=== PATIENT | female | born 1965 | race Caucasian/White ===

== ENCOUNTER 2017-04-02 13:00 | Emergency (ER) | payer SELFPAY ==
[2017-04-02 13:38] LABS: ABSOLUTE BASOPHILS # (AUTO) 0.1 10^3/uL (0.0-0.2); ABSOLUTE EOSINOPHILS # (AUTO) 0.1 10^3/uL (0.0-0.6); ABSOLUTE LYMPHOCYTES (AUTO) 2.5 10^3/uL (0.5-4.7); ABSOLUTE MONOCYTES (AUTO) 0.5 10^3/uL (0.1-1.4); ABSOLUTE NEUT (AUTO) 5.7 10^3/uL (1.7-8.2); BASOPHILS % (AUTO) 0.8 % (0-2); EOSINOPHILS % (AUTO) 0.6 % (0-6); HEMATOCRIT 38.7 % (36.0-47.0); HEMOGLOBIN 13.4 g/dL (12.0-15.5); HGB HCT DIFFERENCE 1.5; LYMPHOCYTES % (AUTO) 28.3 % (13-45); MEAN CORPUSCULAR HEMOGLOBIN 29.4 pg (27.0-33.4); MEAN CORPUSCULAR HGB CONC 34.6 g/dL (32.0-36.0); MEAN CORPUSCULAR VOLUME 85 fl (80-97); RED BLOOD COUNT 4.55 10^6/uL (3.72-5.28); RED CELL DISTRIBUTION WIDTH 12.3 % (11.5-14.0); SEGMENTED NEUTROPHILS % (AUTO) 64.3 % (42-78); WHITE BLOOD COUNT 8.9 10^3/uL (4.0-10.5)
[2017-04-02 13:49] LABS: ALANINE AMINOTRANSFERASE 27 U/L (9-52); ALKALINE PHOSPHATASE 99 U/L (38-126); ANION GAP 14 (5-19); ASPARTATE AMINO TRANSFERASE 18 U/L (14-36); BILIRUBIN,DIRECT 0.4 mg/dL (0.0-0.4); BILIRUBIN,TOTAL 0.6 mg/dL (0.2-1.3); BLOOD UREA NITROGEN 17 mg/dL (7-20); CALCIUM 9.7 mg/dL (8.4-10.2); CARBON DIOXIDE 23 mmol/L (22-30); CHLORIDE 100 mmol/L (98-107); CREATININE RESULT 0.58 mg/dL (0.52-1.25); GLUCOSE 275 mg/dL (75-110); POTASSIUM 4.2 mmol/L (3.6-5.0); SODIUM 136.9 mmol/L (137-145); TOTAL PROTEIN 6.5 g/dL (6.3-8.2)
--- NOTE | 2017-04-02 13:57 | RADIOLOGY REPORT (SQ) ---
EXAM DESCRIPTION: CT HEAD WITHOUT COMPLETED DATE/TIME: 04/02/2017 1:38 pm REASON FOR STUDY: parersthesia COMPARISON: None. TECHNIQUE: Axial images acquired through the brain without intravenous contrast. Images reviewed wi th bone, brain and subdural windows. Images stored on PACS. All CT scanners at this facility use dose modulation, iterative reconstruction, and/or weight based d osing when appropriate to reduce radiation dose to as low as reasonably achievable (ALARA). [facility]: Dose Right [facility]: CareDose [facility]: Dose Right [facility]: Teradose 4D [facility]: Smart [employer] RADIATION DOSE: Up-to-date CT equipment and radiation dose reduction techniques were employed. CTDIv ol: 64.6 mGy. DLP: 1163 mGy-cm. mGy. LIMITATIONS: None. FINDINGS: VENTRICLES: Prominent. CEREBRUM: No masses. No hemorrhage. No midline shift. Areas of low density in the white matter mos t likely due to chronic micro-vascular ischemic change. No evidence for acute infarction. CEREBELLUM: No masses. No hemorrhage. No alteration of density. No evidence for acute infarction. EXTRAAXIAL SPACES: Mild age-related involutional change. No fluid collections. No masses. ORBITS AND GLOBE: No intra- or extraconal masses. Normal contour of globe without masses. CALVARIUM: No fracture. PARANASAL SINUSES: No fluid or mucosal thickening. SOFT TISSUES: No mass or hematoma. OTHER: No other significant finding. IMPRESSION: No acute abnormality in the brain. TECHNICAL DOCUMENTATION: JOB ID: [id number] Quality ID # [id number]: Final reports with documentation of one or more dose reduction techniques (e.g., Au tomated exposure control, adjustment of the mA and/or kV according to patient size, use of iterative reconstruction technique) 2010 [employer]- All Rights Reserved
--- NOTE | 2017-04-02 14:00 | ER Document Report ---
HPI - HPI Patient complains to provider of: Left side paresthesia Onset: This morning Onset/Duration: Sudden, Constant Quality of pain: No pain Pain Level: Denies Associated Symptoms: None Exacerbated by: Denies Relieved by: Denies Similar symptoms previously: No Recently seen / treated by doctor: No Notes: 51-year-old female presents with acute onset of left-sided numbness and tingling which starts at the top of her head and goes to the bottom of her foot. Symptoms started this morning. She denies any focal motor weakness. No recent neck injury. No neck pain. No other neurologic complaints. She is walking without difficulty. - CARDIOVASCULAR Cardiovascular: DENIES: Chest pain - DERM Skin Color: Normal Past Medical History - General Information source: Patient - Social History Smoking Status: Never Smoker Frequency of alcohol use: Occasional Drug Abuse: None Lives with: Family Family History: None Patient has suicidal ideation: No Patient has homicidal ideation: No - Past Medical History Cardiac Medical History: Reports: Hx Hypercholesterolemia, Hx Hypertension Endocrine Medical History: Reports: Hx Diabetes Mellitus Type 2 Renal/ Medical History: Denies: Hx Peritoneal Dialysis Past Surgical History: Reports: Hx Cardiac Surgery - Immunizations Hx Diphtheria, Pertussis, Tetanus Vaccination: Yes Vertical Provider Document - CONSTITUTIONAL Agree With Documented VS: Yes Exam Limitations: No Limitations General Appearance: WD/WN, No Apparent Distress - INFECTION CONTROL TRAVEL OUTSIDE OF THE [place] IN LAST 30 DAYS: No - HEENT HEENT: Atraumatic, Normocephalic, PERRLA - NECK Neck: Normal Inspection - RESPIRATORY Respiratory: Breath Sounds Normal O2 Sat by Pulse Oximetry: 98 - CARDIOVASCULAR Cardiovascular: Regular Rate, Regular Rhythm - GI/ABDOMEN Gastrointestinal: Abdomen Soft, Abdomen Non-Tender - BACK Back: Normal Inspection - NEURO Level of Consciousness: Awake, Alert, Appropriate Motor/Sensory: No Motor Deficit, Sensory Deficit - From top of head to bottom of left foot, patient states sensory is asymmetric - DERM Integumentary: Warm, Dry Course - Re-evaluation Re-evalutation: 04/02/17 14:01 CT read as negative by radiologist. Laboratory studies are negative. There is no indication for admission at this time. Discussed need for primary care follow-up. Discussed need for outpatient MRI of the brain. Also discussed benefit of a neurology evaluation. Recommend taking a baby aspirin daily. - Vital Signs Vital signs: Temp Pulse Resp BP Pulse Ox 99.1 F 92 16 182/88 H 98 04/02/17 13:02 04/02/17 13:15 04/02/17 13:15 04/02/17 13:15 04/02/17 13:15 - Laboratory Result Diagrams: 04/02/17 13:25 04/02/17 13:25 - Diagnostic Test Radiology reviewed: Reports reviewed Discharge - Discharge Clinical Impression: Paresthesia Condition: Good Disposition: HOME, SELF-CARE Instructions: Numbness or Paresthesia ([facility]) Additional Instructions: Follow-up with your primary care provider tomorrow. You may benefit from an outpatient MRI of your brain. You also may benefit from a neurology evaluation. Return to the emergency department if worse or for any other problems. Referrals: RED DINH MD [ACTIVE STAFF] - Follow up as needed
[2017-04-02 14:20] VITALS: BP 145/84
== END 2017-04-02 14:18 | disposition home or self-care (01) ==
LOC: ER 13:00
DX: R20.9 Unspecified disturbances of skin sensation (principal); E78.00 Pure hypercholesterolemia, unspecified; I10 Essential (primary) hypertension; E11.9 Type 2 diabetes mellitus without complications
CPT/HCPCS: 36415; 70450; 80053; 85025; 99284

== ENCOUNTER → 2017-05-22 | Outpatient (CLI) | payer SELFPAY ==
--- NOTE | 2017-05-22 16:25 | XCELERA REPORT ---
[address] [address] Lower Extremity Venous Evaluation Name: MARY ELLEN BAUM Age: 51 yrs Gender: Female : 1965 Patient Status: Outpatient Patient Location: Study Date: 05/22/2017 03:29 PM Procedure: Color flow and duplex imaging of the veins of the left lower extremity as well as the right Common Femoral vein. Reason For Study: SWELLING Ordering Physician: ATILIO BETHEA Performed By: Martha Alarcon Right Sided Venous Evaluation The right common femoral vein is fully compressible. Spontaneous and phasic flow is present in the right common femoral vein. Left Sided Venous Evaluation Normal vessel filling wall to wall, compression and augmentation as well as Colour flow down to the infrageniculate veins. Interpretation Summary No duplex evidence of DVT or obstruction in the left lower extremity nor in the right Common Femoral vein. : ATILIO BETHEA > Art Limon
== END ==
LOC: SP 15:22
PROVIDERS: ATTEND Physician Assistant
DX: R60.0 Localized edema (principal)
CPT/HCPCS: 93971